=== PATIENT | male | born 1970 | race Caucasian/White ===

== ENCOUNTER → 2020-05-02 | Outpatient (CLI) | payer BC | LOC: HYPER 13:59 | PROVIDERS: ATTEND Emergency Medicine | DX: L97.522 Non-pressure chronic ulcer of other part of left foot with fat layer exposed (principal); L97.422 Non-pressure chronic ulcer of left heel and midfoot with fat layer exposed; S91.302A Unspecified open wound, left foot, initial encounter; W34.00XA Accidental discharge from unspecified firearms or gun, initial encounter; Y93.89 Activity, other specified; Y92.89 Other specified places as the place of occurrence of the external cause; Y99.8 Other external cause status ==

== ENCOUNTER → 2020-05-09 | Outpatient (CLI) | payer BC | LOC: HYPER 10:01 | PROVIDERS: ATTEND Emergency Medicine | DX: L97.522 Non-pressure chronic ulcer of other part of left foot with fat layer exposed (principal); L97.422 Non-pressure chronic ulcer of left heel and midfoot with fat layer exposed; S91.302D Unspecified open wound, left foot, subsequent encounter; W34.00XD Accidental discharge from unspecified firearms or gun, subsequent encounter; Y83.8 Other surgical procedures as the cause of abnormal reaction of the patient, or of later complication, without mention of misadventure at the time of the procedure ==

== ENCOUNTER → 2020-05-17 | Outpatient (CLI) | payer BC | LOC: HYPER 15:03 | PROVIDERS: ATTEND Emergency Medicine | DX: L97.522 Non-pressure chronic ulcer of other part of left foot with fat layer exposed (principal); L97.422 Non-pressure chronic ulcer of left heel and midfoot with fat layer exposed; S91.302D Unspecified open wound, left foot, subsequent encounter; W34.00XD Accidental discharge from unspecified firearms or gun, subsequent encounter ==

== ENCOUNTER → 2020-06-06 | Outpatient (CLI) | payer BC | LOC: HYPER 14:53 | PROVIDERS: ATTEND Emergency Medicine | DX: L97.522 Non-pressure chronic ulcer of other part of left foot with fat layer exposed (principal); L97.422 Non-pressure chronic ulcer of left heel and midfoot with fat layer exposed; S91.302D Unspecified open wound, left foot, subsequent encounter; W34.00XD Accidental discharge from unspecified firearms or gun, subsequent encounter ==

== ENCOUNTER → 2020-06-23 | Outpatient (CLI) | payer BC | LOC: HYPER 10:14 | PROVIDERS: ATTEND Emergency Medicine | DX: L97.522 Non-pressure chronic ulcer of other part of left foot with fat layer exposed (principal); S91.302D Unspecified open wound, left foot, subsequent encounter; W34.00XD Accidental discharge from unspecified firearms or gun, subsequent encounter ==

== ENCOUNTER → 2020-07-07 | Outpatient (CLI) | payer BC | LOC: HYPER 10:10 | PROVIDERS: ATTEND Emergency Medicine | DX: L97.522 Non-pressure chronic ulcer of other part of left foot with fat layer exposed (principal); S91.302D Unspecified open wound, left foot, subsequent encounter; W34.00XD Accidental discharge from unspecified firearms or gun, subsequent encounter ==